=== PATIENT | male | born 1940 | race African-American/Black ===

== ENCOUNTER 2025-07-05 09:50 | Emergency (ER) | payer BC ==
[~2025-07-05] VITALS: Ht 177.8 cm; Wt 105.0 kg
[~2025-07-05 09:50] MED LIST: AMLO10TA80 MT; ATEN-42 PO; BENA-8 PO; HYDR25TA MT; LOVA10TA54 MT; MULT-1146 MT; TOPUD MT
[2025-07-05 10:02] VITALS: O2SAT 100
[2025-07-05 11:41] VITALS: BP 115/62; PULSE 85; RESP 16; O2SAT 100
== END 2025-07-05 11:43 | disposition home or self-care (01) ==
LOC: ER 09:50
DX: T83.031A Leakage of indwelling urethral catheter, initial encounter (principal); Z46.6 Encounter for fitting and adjustment of urinary device; I48.91 Unspecified atrial fibrillation; Z79.01 Long term (current) use of anticoagulants; Z79.899 Other long term (current) drug therapy; Y73.8 Miscellaneous gastroenterology and urology devices associated with adverse incidents, not elsewhere classified
CPT/HCPCS: 51702; 99284